=== PATIENT | male | born 1950 | race Caucasian/White ===

== ENCOUNTER 2018-01-25 19:36 | Emergency (ER) | payer OTHER ==
[~2018-01-25] VITALS: Ht 165.1 cm; Wt 81.6 kg
[2018-01-25 20:15] VITALS: BP 111/66
--- NOTE | 2018-01-25 22:02 | Emergency Room Report ---
History of Present Illness General Chief Complaint: Multiple Trauma/Fall Source: EMS Present Illness HPI Patient's a 67-year-old male who presented after a fall. Patient stated that he had fallen approximately 2 days ago. He was reportedly had increased pain to his left hip. He had prior history of ascites and liver disease. He reported having a previous history of paracentesis procedures. He denies any fever.The patient reports having been unable to family due to pain. History is markedly limited by patient's mental status. Allergies: Coded Allergies: No Known Allergies (Unverified , 01/25/18) Patient History Past Medical History: see triage record Reviewed Nursing Documentation: PMH: Agreed; PSxH: Agreed Nursing Documentation-PMH Hx Gastrointestinal Problems: Yes - CIRRHOSIS Review of Systems All Other Systems: limited - by poor historian Physical Exam Vital Signs Date Time Temp Pulse Resp B/P (MAP) Pulse Ox O2 Delivery O2 Flow Rate FiO2 01/25/18 19:38 98.0 90 18 111/66 98 Room Air 98.1 Sp02 EP Interpretation: reviewed, normal General Appearance: normal inspection, alert, GCS 15, Chronically Ill Head: atraumatic ENT: normal ENT inspection, hearing grossly normal, normal voice Neck: normal inspection, full range of motion, supple, no bony tend Respiratory: normal inspection, lungs clear, normal breath sounds, no respiratory distress, no retraction, no wheezing Cardiovascular #1: regular rate, rhythm, no edema Gastrointestinal: normal inspection, soft, other - fluid wave Genitourinary: no CVA tenderness Musculoskeletal: normal inspection, back normal, decreased range of motion - left hip, no shortening or rotation, brisk pulses Neurologic: normal inspection, alert, responsive, marketing specialist III-XII nml as tested, speech normal Psychiatric: normal inspection, judgement/insight normal, mood/affect normal Skin: no rash Medical Decision Making Diagnostic Impression: Primary Impression: Fall Additional Impressions: Cirrhosis Fracture, proximal femur ER Course Patient presented after a fall. Differential diagnosis included was not limited to hip fracture, dislocation, muscle injury among others.Because of complexity of patient's case laboratory testing and imaging studies were ordered. CT imaging of the left hip read by radiology showed large amount of ascites the patient was noted to have bilateral inguinal hernias and a small cortical irregularity along the greater trochanter of the left hip consistent with a non- displaced fracture. The laboratory testing showed no evidence coagulopathy as well as some evidence of patient's chronic liver disease. Is given morphine for pain.Dr. Hill was contacted for [facility] for [facility] for likely inpatient management due to patient's inability ambulate. Labs Test 01/25/18 22:35 White Blood Count 7.2 K/UL (4.8-10.8) Red Blood Count 4.09 M/UL (4.70-6.10) Hemoglobin 12.8 G/DL (14.2-18.0) Hematocrit 38.2 % (42.0-52.0) Mean Corpuscular Volume 93 FL (80-99) Mean Corpuscular Hemoglobin 31.4 PG (27.0-31.0) Mean Corpuscular Hemoglobin Concent 33.7 G/DL (32.0-36.0) Red Cell Distribution Width 14.5 % (11.6-14.8) Platelet Count 112 K/UL (150-450) Mean Platelet Volume 7.4 FL (6.5-10.1) Neutrophils (%) (Auto) 66.5 % (45.0-75.0) Lymphocytes (%) (Auto) 20.2 % (20.0-45.0) Monocytes (%) (Auto) 6.7 % (1.0-10.0) Eosinophils (%) (Auto) 4.6 % (0.0-3.0) Basophils (%) (Auto) 2.0 % (0.0-2.0) Prothrombin Time 11.2 SEC (9.30-11.50) Prothromb Time International Ratio 1.1 (0.9-1.1) Activated Partial Thromboplast Time 28 SEC (23-33) Sodium Level 141 MMOL/L (136-145) Potassium Level 3.7 MMOL/L (3.5-5.1) Chloride Level 104 MMOL/L (98-107) Carbon Dioxide Level 32 MMOL/L (21-32) Anion Gap 5 mmol/L (5-15) Blood Urea Nitrogen 23 mg/dL (7-18) Creatinine 0.9 MG/DL (0.55-1.30) Estimat Glomerular Filtration Rate > 60 mL/min (>60) Glucose Level 107 MG/DL (74-106) Calcium Level 8.5 MG/DL (8.5-10.1) Total Bilirubin 2.2 MG/DL (0.2-1.0) Direct Bilirubin 0.9 MG/DL (0.0-0.3) Aspartate Amino Transf (AST/SGOT) 56 U/L (15-37) Alanine Aminotransferase (ALT/SGPT) 35 U/L (12-78) Alkaline Phosphatase 323 U/L (46-116) Total Protein 7.5 G/DL (6.4-8.2) Albumin 2.6 G/DL (3.4-5.0) Globulin 4.9 g/dL Albumin/Globulin Ratio 0.5 (1.0-2.7) Last Vital Signs Date Time Temp Pulse Resp B/P (MAP) Pulse Ox O2 Delivery O2 Flow Rate FiO2 01/25/18 19:38 98.0 90 18 111/66 98 Room Air 98.1 Status: unchanged Disposition: XFER SHT-TRM HOSP Condition: Serious Referrals: NOT CHOSEN IPA/,REFERRING (PCP) Piyush Choi MD Jan 25, 2018 22:02
[2018-01-25] MEDS ORDERED: Morphine Sulfate 2mg/ml Inj(IV/IM USE ONLY) IVP ONE (22:15)
[2018-01-25 22:51] LABS: EOSINOPHILS % (AUTO) 4.6 % (0.0-3.0); HEMATOCRIT 38.2 % (42.0-52.0); HEMOGLOBIN 12.8 G/DL (14.2-18.0); LYMPHOCYTES % (AUTO) 20.2 % (20.0-45.0); MEAN CORPUSCULAR VOLUME 93 FL (80-99); MONOCYTES % (AUTO) 6.7 % (1.0-10.0); NEUTROPHILS % (AUTO) 66.5 % (45.0-75.0); PLATELET COUNT 112 K/UL (150-450); RED BLOOD COUNT 4.09 M/UL (4.70-6.10); RED CELL DISTRIBUTION WIDTH 14.5 % (11.6-14.8); WHITE BLOOD COUNT 7.2 K/UL (4.8-10.8)
[2018-01-25 22:58] LABS: INR 1.1 (0.9-1.1)
[2018-01-25 22:59] LABS: ANION GAP 5 mmol/L (5-15); BLOOD UREA NITROGEN 23 mg/dL (7-18); CALCIUM 8.5 MG/DL (8.5-10.1); CARBON DIOXIDE 32 MMOL/L (21-32); CHLORIDE 104 MMOL/L (98-107); CREATININE 0.9 MG/DL (0.55-1.30); POTASSIUM 3.7 MMOL/L (3.5-5.1); SODIUM 141 MMOL/L (136-145)
[2018-01-25 23:13] LABS: ALANINE AMINOTRANSFERASE 35 U/L (12-78); ALBUMIN 2.6 G/DL (3.4-5.0); ALBUMIN/GLOBULIN RATIO 0.5 (1.0-2.7); ALKALINE PHOSPHATASE 323 U/L (46-116); ASPARTATE AMINO TRANSFERASE 56 U/L (15-37); BILIRUBIN,TOTAL 2.2 MG/DL (0.2-1.0)
[2018-01-25 23:17] LABS: BILIRUBIN,DIRECT 0.9 MG/DL (0.0-0.3)
[2018-01-26 00:27] VITALS: BP 121/60
[2018-01-26 01:30] VITALS: BP 111/61
[2018-01-26 01:33] VITALS: BP 111/61
--- NOTE | 2018-01-26 09:26 | Diagnostic Imaging Report ---
Indications: Head pain, status post fall x3 days Technique: Spiral acquisitions obtained through the brain. Angled axial and coronal 5 x 5 mm slices were reconstructed. Total dose length product 1453.5 mGycm. CTDI vol(s) 70.38 mGy. Dose reduction achieved using automated exposure control Comparison: None. Findings: There is age-related enlargement of the ventricles and extra axial CSF spaces. There is periventricular deep white matter low-attenuation, consistent with chronic ischemic change. Normal awan-white differentiation otherwise. No acute hemorrhage nor edema. No mass effect or midline shift. Visualized orbits and sinuses are unremarkable. The calvarium is intact Impression: Chronic and age-related changes as described Negative for acute intracranial bleed or mass effect This agrees with the preliminary interpretation provided overnight by [facility]. The CT scanner at [facility] is accredited by the [employer] and the scans are performed using protocols designed to limit radiation exposure to as low as reasonably achievable to attain images of sufficient resolution adequate for diagnostic evaluation.
--- NOTE | 2018-01-26 09:31 | Diagnostic Imaging Report ---
Indication: Left hip pain, 3 days status post fall Technique: No IV contrast utilized, per trauma protocol Spiral acquisitions obtained through the left hip Multiplanar reconstructions were generated. Total dose length product 552.13 mGycm. CTDIvol(s) 15.75 mGy. Radiation dose was minimized using automated exposure control Comparison: none Findings: Best appreciated on the coronal reconstructions is some cortical irregularity and lucency along the greater trochanter, consistent with a nondisplaced greater trochanteric fracture. No through and through fracture demonstrated.. No dislocations. The joint spaces are preserved. There is anasarca. There is massive ascites present. There is also herniation of a very large amount of fluid into the right hemiscrotum. But smaller amount of fluid is herniated into the left hemiscrotum. The subcutaneous and pelvic fat and scrotal wall are diffusely edematous, and the skin is thickened diffusely Impression: Positive for nondisplaced fracture of the left greater trochanter Anasarca Massive ascites, with herniation of fluid into the scrotum This agrees with the preliminary interpretation provided overnight by [facility]. The CT scanner at [facility] is accredited by the [employer] and the scans are performed using protocols designed to limit radiation exposure to as low as reasonably achievable to attain images of sufficient resolution adequate for diagnostic evaluation.
== END 2018-01-26 01:33 | disposition short-term general hospital (02) ==
LOC: EDBD 19:36 → EMR 20:14 → EDBEDREQ 21:19 → EMR 01-26 01:33
DX: S72.002A Fracture of unspecified part of neck of left femur, initial encounter for closed fracture (principal); R51 Headache; K74.60 Unspecified cirrhosis of liver; W18.30XA Fall on same level, unspecified, initial encounter; Y92.9 Unspecified place or not applicable
CPT/HCPCS: 36415; 70450; 73700; 80053; 82248; 85025; 85610; 85730; 86850; 86900; 86901; 96374; 99284; J2270